=== PATIENT | female | born 1945 | race Caucasian/White ===

== ENCOUNTER 2020-02-11 15:14 | Emergency (ER) | payer OTHER ==
[2020-02-11 15:26] VITALS: BP 132/77; PULSE 84; TEMP 98.1; BMI 27.3
[2020-02-11] MEDS ORDERED: KETOROLAC TROMETHAMINE 30 MG/1 ML VIAL IM ONE (16:29)
[2020-02-11] MEDS ORDERED: ACETAMINOPHEN 500 MG TABLET (FP) PO ONE (16:29)
[2020-02-11] MEDS ORDERED: KETOROLAC TROMETHAMINE 30 MG/1 ML VIAL ONE (16:42)
[2020-02-11] MEDS ORDERED: ACETAMINOPHEN 500 MG TABLET (FP) ONE (16:42)
== END 2020-02-11 18:19 | disposition home or self-care (01) ==
LOC: JER 15:14
PROC: 3E0233Z Introduction of Anti-inflammatory into Muscle, Percutaneous Approach (ICD-10-PCS; principal; 2020-02-11)
DX: M25.562 Pain in left knee (principal)
CPT/HCPCS: 93971-TC; 99285-25

== ENCOUNTER 2023-02-13 18:16 | Emergency (ER) | payer OTHER ==
[2023-02-13 18:25] VITALS: BP 131/64; PULSE 92; RESP 18; TEMP 98.3; BMI 25.4
[2023-02-13] MEDS ORDERED: ACETAMINOPHEN 500 MG TABLET (FP) PO ONE (19:31)
[2023-02-13] MEDS ORDERED: ACETAMINOPHEN 325 MG TABLET (FP) ONE (19:52)
[2023-02-13] MEDS ORDERED: ACETAMINOPHEN 325 MG TABLET (FP) PO ONE (20:05)
== END 2023-02-13 20:32 | disposition home or self-care (01) ==
LOC: JER 18:16
DX: M25.561 Pain in right knee (principal); S82.001A Unspecified fracture of right patella, initial encounter for closed fracture; W01.0XXA Fall on same level from slipping, tripping and stumbling without subsequent striking against object, initial encounter
CPT/HCPCS: 73562-TC-RT-FY; 99283-25